=== PATIENT | male | born 2005 | race American Indian/Alaskan Native ===

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

== ENCOUNTER 2025-01-03 01:30 | Emergency (ER) | payer MEDICAID ==
[2025-01-03 01:43] LABS: BASOPHILS PERCENT AUTO 0.2 % (0.0-1.0); EOSINOPHILS PERCENT AUTO 0.3 % (1.0-3.0); LYMPHOCYTES PERCENT AUTO 14.9 % (20.5-50.1); MONOCYTES PERCENT AUTO 5.5 % (2-8); NEUTROPHILS PERCENT AUTO 79.1 % (42.2-75.2); PLATELET COUNT,PLT 333 10^3/uL (150-450); RED BLOOD CELL COUNT 5.05 10^6/uL (4.6-6.2); WHITE BLOOD CELL COUNT,WBC 9.8 10^3/uL (5.0-10.0)
[2025-01-03 02:09] LABS: A/G RATIO 1.2; ALANINE AMINOTRANSFERASE,ALT 17 U/L (16-63); ASPARTATE AMNIOTRANSFERASE,AST 13 U/L (15-37); BILIRUBIN TOTAL 0.3 mg/dL (0.2-1.0); BLOOD UREA NITROGEN,BUN 5 mg/dL (7-18); CARBON DIOXIDE,CO2 26 mmol/L (21-32); CHLORIDE,CL 110 mmol/L (98-107); CREATININE 0.78 mg/dL (0.70-1.30); ESTIMATED GFR 131 mL/min (>=60); ETHANOL BLOOD MEDICAL 207 mg/dL (0); GLUCOSE RANDOM 100 mg/dL (70-99); POTASSIUM,K 4.3 mmol/L (3.5-5.1); PROTEIN TOTAL,TP 8.2 g/dL (6.4-8.2); SODIUM,NA 148 mmol/L (136-145)
== END 2025-01-03 04:00 | disposition home or self-care (01) ==
LOC: DL.ED 01:30
DX: S01.01XA Laceration without foreign body of scalp, initial encounter (principal); S01.81XA Laceration without foreign body of other part of head, initial encounter; Y08.02XA Assault by strike by baseball bat, initial encounter
CPT/HCPCS: 12001; 12011; 36415; 70450; 71045; 73080; 80053; 80307; 83735; 84484; 85025; 87081; 87430; 99285; J2003; 99283